=== PATIENT | male | born 1945 | race Caucasian/White ===

== ENCOUNTER 2016-06-21 10:45 | Day surgery (SDC) | payer MEDICARE ==
[~2016-06-21 10:45] MED LIST: ADVIL200 M3 PO; ASPIRIN81 M1 PO; LIPITOR20 M1 PO; PRILOSEC OTC20 M1 PO; TOPROL XL50 M1 PO
== END 2016-06-21 14:40 ==
LOC: SHSB 10:45
PROC: BV49ZZZ Ultrasonography of Prostate and Seminal Vesicles (ICD-10-PCS; principal; 2016-06-21)
PROC: 0VH031Z Insertion of Radioactive Element into Prostate, Percutaneous Approach (ICD-10-PCS; 2016-06-21)
DX: C61 Malignant neoplasm of prostate (principal); I10 Essential (primary) hypertension; I25.10 Atherosclerotic heart disease of native coronary artery without angina pectoris; E66.9 Obesity, unspecified; K21.9 Gastro-esophageal reflux disease without esophagitis; Z95.1 Presence of aortocoronary bypass graft; Z79.82 Long term (current) use of aspirin; Z68.36 Body mass index [BMI] 36.0-36.9, adult; Z79.899 Other long term (current) drug therapy
CPT/HCPCS: A4648; J0696